=== PATIENT | male | born 2000 | race Caucasian/White ===

== ENCOUNTER 2023-12-11 19:57 | Emergency (ER) | payer SELFPAY ==
--- NOTE | 2023-12-11 19:59 | XRR_ITS ---
PROCEDURE INFORMATION: Exam: XR Right Hand Exam date and time: 12/11/2023 8:03 PM Age: 23 years old Clinical indication: Injury or trauma; Other: Hand vs wrench vs engine; Blunt trauma (contusions or hematomas); Right TECHNIQUE: Imaging protocol: Radiologic exam of the right hand. Views: 3 or more views. COMPARISON: No relevant prior studies available. FINDINGS: Bones/joints: No fracture. No degenerative changes. Soft tissues: There is soft tissue swelling in both the medial and lateral portions of the hand. No gas in the soft tissues or radiopaque foreign body. XR/XR hand RT min 3V* [id number] IMPRESSION: 1. No acute bony findings 2. Medial and lateral soft tissue swelling
[2023-12-11 20:17] VITALS: BP 117/77; PULSE 69; RESP 14; TEMP 36.7; O2SAT 98
--- NOTE | 2023-12-11 20:20 | W.ED.EXTPRO ---
HPI - Extremity Problem General: Chief complaint: Extremity Injury, Upper Stated complaint: Right hand injury Time Seen by Provider: 12/11/23 20:20 History of Present Illness: 23-year-old male patient comes in today with injury to the right hand. On exam patient has some tenderness to the dorsal right hand. No obvious swelling or deformity is noted. Patient does have a history of prior injury to the hand. Review of Systems General: Reports: 10 or more systems reviewed and unremarkable except in HPI and below Musc: Reports: extremity pain Physical Exam Const: COMMON NORMALS: alert HENMT: COMMON NORMALS: normocephalic HEAD & SCALP: normocephalic Neck/C-Spine: COMMON NORMALS: full ROM Resp: COMMON NORMALS: normal respiratory effort Cardio: COMMON NORMALS: regular rate RATE: regular rate GI: COMMON NORMALS: non-tender Back/Pelvis: COMMON NORMALS: thoracic and lumbar spine normal to inspection Extremity: COMMON NORMALS: full ROM Neuro: SENSORIUM/ORIENTATION: Yes alert Skin: COMMON NORMALS: turgor normal GENERAL SKIN EXAM: turgor normal Course Vital Signs: Vital signs: Vital Signs Temperature 98.0 F 12/11/23 20:17 Pulse Rate 69 12/11/23 20:17 Respiratory Rate 14 12/11/23 20:17 Blood Pressure 117/77 12/11/23 20:17 Pulse Oximetry 98 12/11/23 20:17 Oxygen Delivery Me thod Room Air 12/11/23 20:17 MDM - Extremity (Nontraumatic) Medical Decision Making 23-year-old male patient comes in today for complaints of injury to his right hand. Patient was at work when a branch struck the back of his right hand. Patient has pain and discomfort with movement. Patient has good range of motion of the fingers. Differential diagnosis includes but not limited to fracture, contusion, sprain. X-ray notes no fracture. Reviewed exam with patient with recommendations for treatment and follow-up. Patient reported understanding. XR interpretation done by ED provider, pending radiology final review Discharge Plan Discharge Patient Disposition: Home Clinical Impression: Contusion of hand, right Qualifiers: Encounter type: initial encounter Qualified Code(s): S60.221A - Contusion of right hand, initial encounter Condition: Stable Prescriptions: No Action amoxicillin-pot clavulanate 875-125 mg tablet 1 tab PO BID 7 Days Qty: 14 0RF Discharge Orders: Discharge ED (Routine); Ordered 12/11/23 Ordered By: Andrea Alva Discharge Diet: Usual diet Discharge Activity: Increase activity as tolerated Patient Instructions: Crush Injury (ED) Activity Restrictions/Additional Instructions: Activity as tolerated. Use ice packs to help with pain. Use Tylenol and ibuprofen for further pain relief. Follow-up with primary care for further instructions. Return to ED for new concerns. Stand Alone Forms: Work/School Release Coding Level of Care Code ED Refinery Operator Assistant for Joan Judge
== END 2023-12-11 21:19 | disposition home or self-care (01) ==
PROVIDERS: Emergency Provider Nurse Practitioner Family
DX: S60.221A Contusion of right hand, initial encounter (principal); X58.XXXA Exposure to other specified factors, initial encounter
CPT/HCPCS: 73130; 99283

== ENCOUNTER 2023-12-14 21:54 | Emergency (ER) | payer SELFPAY ==
[2023-12-14 22:08] VITALS: BP 132/79; PULSE 65; RESP 17; TEMP 36.8; O2SAT 99; BMI 27.1
[2023-12-14] MEDS: sulfamethoxazole-trimeth DS 160-800 mg Tablet 1 TAB PO (22:43)
[2023-12-14] MEDS: lidocaine 2% INJ 20 mL INJECTION (22:45)
--- NOTE | 2023-12-14 23:10 | W.ED.SKABFB ---
Documented by User: BROOKS Chadwick 12/14/23 23:14 HPI - Skin/Abscess/Foreign Bdy General: Chief complaint: Skin/Abscess/Foreign Body Stated complaint: Cist on Lower Back Time Seen by Provider: 12/14/23 22:16 Source: patient Mode of arrival: ambulatory Limitations: no limitations History of Present Illness: Patient is a 23-year-old male who presents to the emergency department complaining of recurrence of pilonidal cyst. He states that the area is not fluctuant as it has been in the past, though he notes some pain and states that he came in before it got worse. He states that has been drained 5 previous times in [place], where he recently moved from. He states he has not gotten in with a general surgeon due to the recent move and not having insurance at this time. He is noting mild pain to the area, has not been running fevers, no nausea or vomiting, or any other symptoms to report at this time. MD complaint: lesion ( Recurrence of pilonidal cyst ) Onset (ago): hour(s) Tetanus up to date: yes Location: buttocks Severity: mild Associated symptoms: Deny chills, fever(s), nausea or vomiting Review of Systems General: Reports: 10 or more systems reviewed and unremarkable except in HPI and below Const: Denies: fever(s), chills or fatigue Eyes: Denies: change in vision ENMT: Denies: throat pain, ear or mastoid pain or nasal discharge Card: Denies: chest pain, palpitations, swelling of feet/ankles or lightheadedness Resp: Denies: dyspnea, productive cough or wheezing GI: Denies: abdominal pain, nausea, vomiting, diarrhea or constipation : Denies: flank pain, difficulty urinating, dysuria or urinary frequency Musc: Denies: neck pain, back pain or joint pain Skin/Breast: Reports: lesions (Recurrence of pilonidal cyst); Denies: rash Neuro: Denies: headache(s), numbness in extremities or weakness in extremities Physical Exam Const: COMMON NORMALS: no acute distress, patient oriented x3 and no limitations GENERAL APPEARANCE: cooperative, comfortable and well developed ORIENTATION/CONSCIOUSNESS: Yes awake, Yes oriented to person, Yes oriented to place and Yes oriented to time HENMT: COMMON NORMALS: normocephalic, atraumatic and hearing grossly normal bilaterally HEAD & SCALP: normocephalic and atraumatic Eye: COMMON NORMALS: Equal, round and reactive pupils present, EOMs intact bilaterally and conjunctivae normal CONJUNCTIVA: Yes conjunctivae normal PUPIL: Yes Equal, round and reactive pupils present Neck/C-Spine: COMMON NORMALS: full ROM, supple and no JVD Resp: COMMON NORMALS: normal respiratory effort, No retractions, No use of accessory muscles and clear to auscultation bilaterally AUSCULTATION: clear to auscultation bilaterally Cardio: COMMON NORMALS: no JVD, regular rate, regular rhythm, No clicks present (Cardio), No murmurs present (Cardio) and No rub (Cardio) RATE: regular rate RHYTHM: regular rhythm Extremity: COMMON NORMALS: normal to inspection, full ROM and capillary refill normal Neuro: COMMON NORMALS: patient oriented x3, moves all extremities, no focal motor deficits and no sensory deficits noted SENSORIUM/ORIENTATION: Yes oriented to person, Yes oriented to place and Yes oriented to time Psych: COMMON NORMALS: mental status grossly normal and Normal thought process present THOUGHT PROCESS: Normal thought process present Skin: OTHER: Palpable area of induration noted just right of the gluteal cleft, presence of previous I&D. No appreciable fluctuance at this time, though there is a surrounding area of erythema. Area is mildly tender to the touch. Procedures Abscess I/D Site: back (Pilonidal) Local Anesthetic: lidocaine 2% and with epi Amount of anesthesia used (mL): 2 Technique: incised with #11 blade Amount of fluid expressed (mL): 0 Irrigation: Yes Packing used?: none Course Vital Signs: Vital signs: Vital Signs Temperature 98.2 F 12/14/23 22:08 Pulse Rate 65 12/14/23 22:08 Respiratory Rate 17 12/14/23 22:08 Blood Pressure 132/79 12/14/23 22:08 Pulse Oximetry 99 12/14/23 22:08 Oxygen Delivery Me thod Room Air 12/14/23 22:08 MDM - Skin/Abscess/Foreign Bdy Medicial Decision Making Patient presents stating there is recurrence of a pilonidal cyst that has been drained 5 previous times. On examination it did not appear that there was any drainable abscess, though patient states that it has felt similar in the past and has subsequently drained purulent material. Area was anesthetized an 11 blade made a small incision over the most indurated area, however no purulence was able to be expressed, and patient does note relief of his pain. Suspicion is that patient is dealing with a simple cellulitis of the area, with no underlying abscess. Will treat with Bactrim and address the incision with general wound care. Area was cleaned thoroughly prior to discharge. Also I placed a case management consult for general surgery who will contact the patient to address surgery to remove the pilonidal cyst. Patient agrees with plan and reasons to return discussed. No radiology studies performed this visit Discharge Plan Discharge Patient Disposition: Home Clinical Impression: Cellulitis Condition: Stable Prescriptions: No Action amoxicillin-pot clavulanate 875-125 mg tablet 1 tab PO BID 7 Days Qty: 14 0RF Discharge Orders: Discharge ED (Routine); Ordered 12/14/23 Ordered By: Tip Dyson Discharge Diet: Usual diet Discharge Activity: Increase activity as tolerated Patient Instructions: Cellulitis (ED) Activity Restrictions/Additional Instructions: Follow-up with general surgery as discussed. Take antibiotics as prescribed. General wound care of the area as discussed. Ice to the area for added relief. Tylenol or ibuprofen for any pain. Return with any new or worsening symptoms or signs of infection. Coding Level of Care Code ED Non Destructive Testing Supervisor for Chg Fwd Documented by User: Jefry Rios DO 12/23/23 07:06 HPI - Skin/Abscess/Foreign Bdy General: Chief complaint: Skin/Abscess/Foreign Body Stated complaint: Cist on Lower Back Time Seen by Provider: 12/14/23 22:16 Course Vital Signs: Vital signs: Vital Signs Temperature 98.2 F 12/14/23 22:08 Pulse Rate 65 12/14/23 22:08 Respiratory Rate 17 12/14/23 22:08 Blood Pressure 132/79 12/14/23 22:08 Pulse Oximetry 99 12/14/23 22:08 Oxygen Delivery Me thod Room Air 12/14/23 22:08 MDM - Skin/Abscess/Foreign Bdy Medicial Decision Making Patient presents stating there is recurrence of a pilonidal cyst that has been drained 5 previous times. On examination it did not appear that there was any drainable abscess, though patient states that it has felt similar in the past and has subsequently drained purulent material. Area was anesthetized an 11 blade made a small incision over the most indurated area, however no purulence was able to be expressed, and patient does note relief of his pain. Suspicion is that patient is dealing with a simple cellulitis of the area, with no underlying abscess. Will treat with Bactrim and address the incision with general wound care. Area was cleaned thoroughly prior to discharge. Also I placed a case management consult for general surgery who will contact the patient to address surgery to remove the pilonidal cyst. Patient agrees with plan and reasons to return discussed. Chart reviewed Discharge Plan Discharge Patient Disposition: Home Clinical Impression: Cellulitis Condition: Stable Prescriptions: No Action amoxicillin-pot clavulanate 875-125 mg tablet 1 tab PO BID 7 Days Qty: 14 0RF Discharge Orders: Discharge ED (Routine); Ordered 12/14/23 Ordered By: Tip Dyson Discharge Diet: Usual diet Discharge Activity: Increase activity as tolerated Patient Instructions: Cellulitis (ED) Activity Restrictions/Additional Instructions: Follow-up with general surgery as discussed. Take antibiotics as prescribed. General wound care of the area as discussed. Ice to the area for added relief. Tylenol or ibuprofen for any pain. Return with any new or worsening symptoms or signs of infection. Coding Level of Care Code ED Non Destructive Testing Supervisor for Joan Judge
--- NOTE | 2023-12-16 10:37 | DCPLANNER ---
message sent to general surgery for er f/u
== END 2023-12-14 23:30 | disposition home or self-care (01) ==
PROVIDERS: Emergency Provider Physician Assistant
DX: L03.317 Cellulitis of buttock (principal)
CPT/HCPCS: 10080; 99283

== ENCOUNTER 2023-12-16 20:32 | Emergency (ER) | payer SELFPAY ==
[2023-12-16 20:38] VITALS: BP 121/76; PULSE 73; RESP 16; TEMP 36.7; O2SAT 97; BMI 27.1
[2023-12-16 20:43] VITALS: BP 127/68
--- NOTE | 2023-12-16 20:53 | ED_ITS ---
HPI - Skin/Abscess/Foreign Bdy 2 General: Chief complaint: Skin/Abscess/Foreign Body Stated complaint: Cist on Back Time Seen by Provider: 12/16/23 20:45 Source: patient Mode of arrival: ambulatory Limitations: no limitations History of Present Illness: 23-year-old male states he had a cyst to his buttocks over the last 4 to 5 days he seen here 2 days ago he is on antibiotics states that he still flexors fluid in it as he is having pain. Denies any fevers denies any worse improved factors. Associated symptoms: Deny chills, fever(s), nausea or vomiting Review of Systems 2 Const: Denies: fever(s), chills, body aches or change in appetite ENMT: Denies: throat pain or dental pain Card: Denies: chest pain Resp: Denies: dyspnea GI: Denies: abdominal pain, nausea, vomiting or diarrhea Musc: Denies: neck pain or back pain Skin/Breast: Denies: rash Neuro: Denies: headache(s) Physical Exam 2 Const: COMMON NORMALS: no acute distress, patient oriented x3 and healthy appearing HENMT: COMMON NORMALS: normocephalic and atraumatic HEAD & SCALP: n ormocephalic and atraumatic Neck/C-Spine: COMMON NORMALS: full ROM and supple Chest: COMMONS NORMALS: normal inspection of the chest Resp: COMMON NORMALS: normal respiratory effort Extremity: COMMON NORMALS: normal to inspection and full ROM Neuro: COMMON NORMALS: patient oriented x3, moves all extremities and no focal motor deficits Psych: COMMON NORMALS: mental status grossly normal, Normal thought process present and cooperative THOUGHT PROCESS: Normal thought process present Skin: SKIN IMAGES (MALE): 1. 2 cm abscess noted to the buttocks Procedures Abscess I/D Site: other (pilonidal) Local Anesthetic: lidocaine 1% Amount of anesthesia used (mL): 10 Technique: incised with #11 blade Irrigation: No Packing used?: none Course 2 Vital Signs: Vital signs: Vital Signs Temperature 98.1 F 12/16/23 20:38 Pulse Rate 73 12/16/23 20:38 Respiratory Rate 16 12/16/23 20:38 Blood Pressure 127/68 12/16/23 20:43 Pulse Oximetry 97 12/16/23 20:38 Oxygen Delivery Me thod Room Air 12/16/23 20:38 MDM - Skin/Abscess/Foreign Bdy Medicial Decision Making Patient is here pilonidal cyst I did incise and drain it he is to follow-up with surgery he is already on antibiotics he is to continue return if worsening. Medical Records I reviewed the patient's medical records. No radiology studies performed this visit Discharge Plan Discharge Patient Disposition: Home Clinical Impression: Pilonidal cyst Condition: Stable Prescriptions: No Action amoxicillin-pot clavulanate 875-125 mg tablet 1 tab PO BID 7 Days Qty: 14 0RF Bactrim DS 800-160 mg tablet 1 tab PO DAILY 7 Days Qty: 7 0RF Discharge Orders: Discharge ED (Routine); Ordered 12/16/23 Ordered By: Evan Gomes Discharge Diet: Advance as tolerated Discharge Activity: Resume usual activity Patient Instructions: Pilonidal Cyst (ED) Coding Level of Care Code ED Astrochemist for Joan Judge
[2023-12-16] MEDS: HYDROcodone-acetaminophen 5-325 mg Tablet 1 TAB PO (21:00)
[2023-12-16 21:25] VITALS: BP 127/87; PULSE 80; O2SAT 99
== END 2023-12-16 21:28 | disposition home or self-care (01) ==
PROVIDERS: Emergency Provider Emergency Medicine
DX: L05.91 Pilonidal cyst without abscess (principal)
CPT/HCPCS: 99283

== ENCOUNTER 2024-11-04 06:59 | Emergency (ER) | payer BC, SELFPAY ==
--- NOTE | 2024-11-04 07:07 | XRR_ITS ---
PROCEDURE INFORMATION: Exam: XR Right Forearm Exam date and time: 11/04/2024 7:23 AM Age: 24 years old Clinical indication: Lower or forearm; Right; RT wrist pain for 3 weeks no trauma TECHNIQUE: Imaging protocol: Radiologic exam of the right forearm. Views: 2 views. Total images: 2 COMPARISON: CR XR hand RT min 3V* [id number] 12/11/2023 8:03 PM FINDINGS: Bones/joints: Normal. Soft tissues: Normal. XR/XR forearm RT 2V [id number] IMPRESSION: No acute findings.
[2024-11-04 07:17] VITALS: BP 134/82; PULSE 65; RESP 14; TEMP 36.8; O2SAT 100
--- NOTE | 2024-11-04 07:33 | ED_ITS ---
HPI - Extremity Problem General: Chief complaint: Extremity Injury, Upper Stated complaint: pain rt forearm Time Seen by Provider: 11/04/24 07:06 History of Present Illness: 24-year-old male who presents to the [facility] room with complaint of right forearm pain. He noticed the pain with work. 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 At rest or with things such as use of his phone it does not seem to bother his much. No direct trauma. Related Data Home Medications ?Medication ?Instructions ?Recorded ?Confirmed docusate sodium 100 mg capsule 100 mg PO BID 11/04/24 11/04/24 Previous Rx's ?Medication ?Instructions ?Recorded diclofenac sodium 75 mg 75 mg PO Q12H PRN pain #20 t abs 11/04/24 tablet,delayed release Allergies Allergy/AdvReac Type Severity Reaction Status Date / Time No Known Allergies Allergy Verified 01/30/24 09:30 Review of Systems Musc: Reports: extremity pain [facility] ED PFSH: Surgical History S/P pilonidal cyst excision Social History Smoking and tobacco/nicotine status: current some day tobacco/nicotine user Physical Exam Extremity: OTHER: Right forearm pain. Patient has some mild discomfort along the extensor tendons abductor longus. Negative Finklestein's test. No pain in the anatomical snuffbox no obvious deformity. Corporate Staff Accountant strength equal bilaterally patient able to extend and flex the thumb. Course Vital Signs: Vital signs: Vital Signs Temperature 98.3 F 11/04/24 07:17 Pulse Rate 63 11/04/24 08:02 Respiratory Rate 14 11/04/24 07:17 Blood Pressure 135/86 11/04/24 08:02 Pulse Oximetry 100 11/04/24 08:02 MDM - Extremity (Nontraumatic) Medical Decision Making Overuse tendinitis seems to be primarily of the thumb itself. Suspect he has a very mild de Quervain's tenosynovitis. Will start him on diclofenac and refer him to orthopedics. Lab Data Radiology Impressions Forearm X-Ray 11/04/24 07:07 IMPRESSION: No acute findings. All radiology interpretation(s) finalized by discharge Discharge Plan Discharge Patient Disposition: Home Clinical Impression: Tendinitis of right forearm Condition: Stable Prescriptions: New diclofenac sodium 75 mg tablet,delayed release (DR/EC) 75 mg PO Q12H PRN (Reason: pain) Qty: 20 0RF No Action docusate sodium 100 mg capsule 100 mg PO BID Discharge Orders: Discharge ED (Routine); Ordered 11/04/24 Ordered By: Jefry Rios Discharge Diet: Usual diet Discharge Activity: Increase activity as tolerated Patient Instructions: Opioid Safety, Pain Management Activity Restrictions/Additional Instructions: Thank you for choosing [facility] for your healthcare needs today. It is very important that you follow up as instructed or that you return to the Emergency Department should you have concerns or if your condition changes or worsens in any way. You were seen in the emergency room with pain in the forearm. X-ray of the forearm did not show any fracture. On exam it appears you have a tendinitis. W ill start you on an anti-inflammatory refer you to orthopedics. Stand Alone Forms: Work/School Release Print Language: Egyptian Coding Level of Care Code ED Physical Medicine Teacher for Joan Judge
[2024-11-04 08:02] VITALS: BP 135/86; PULSE 63; O2SAT 100
--- NOTE | 2024-11-05 08:16 | DCPLANNER ---
messaged ortho for er f/u
== END 2024-11-04 08:03 | disposition home or self-care (01) ==
PROVIDERS: Emergency Provider Family Medicine
DX: M65.231 Calcific tendinitis, right forearm (principal); Z72.0 Tobacco use
CPT/HCPCS: 73090; 99283